=== PATIENT | female | born 1940 | race Caucasian/White ===

== ENCOUNTER 2022-03-12 21:38 | Emergency (ER) | payer MEDICARE, SELFPAY ==
[2022-03-12] VITALS (74 sets, daily range): BP systolic 58–133; BP diastolic 19–110; PULSE 59–119; RESP 6–32; TEMP 36.4–36.6; O2SAT 96
--- NOTE | 2022-03-12 21:30 | RT.EKG_ITS ---
APPROVED REPORT Exam: Resting ECG Reason for Exam: GI bleed hypotension Patient Location: E HR:111 bpm ECG Measurements Heart Rate 111 AXIS MI 113 P 75 QRSd 71 QRS 69 QT 332 T 255 QTc 452 Conclusion Sinus tachycardia...rate> 99 Low voltage, extremity leads...all extremity leads <0.5mV Repol abnrm suggests ischemia, anterolateral...ST dep, T neg, I aVL V2-V6
--- NOTE | 2022-03-12 21:47 | ED.GENADUL_ITS ---
Discharge Plan Disposition Patient Disposition: STILL A PATIENT Condition: Deteriorating Discharge Details Clinical Impression: Acute GI bleeding, Acute hypotension Primary Care Provider: Ovi Lujan ED Provider: Lillian Morel Home Meds and New Rx's Prescriptions: No Action lorazepam [Lorazepam Intensol] 2 mg/mL Concentrate 0.5 mg PO Q4H PRN Medical Decision Making 81-year-old female presents to the ER [facility] with a chief complaint of GI bleed, altered mental status and hypotensive. Per staff report they noticed altered mental status, not eating or drinking, and bright red bleeding per rectum. Patient is a DNR/DNI. She is pale, edematous she does have pressure ulcers on her bilateral heels, she is only received an Ativan today. She is not on any blood thinners. EMS was unable to get a blood pressure however we are getting a blood pressure 111/99. Guaiac positive with gross blood on rectal exam upon arrival. 2158: Informed by [facility] operations staff officer blood pressure is 56/46 heart rate is 97, 2 units of uncrossed matched blood ordered. I did discuss that patient is here with her daughter Kyara her phone number is [phone]. She states that she is declining since she had surgery on her fingers approximately 1 and half months ago. She has been [facility] for the last week. She does consent for CT abdomen pelvis and blood transfusion if needed. She will try to find a ride here. Work-up ordered including EKG, serial troponins, PT type and screen COVID test. Patient is a DNR/DNI. [address] María CARTY, NS up W/O. Blood pressure is variable there was a reading of 61 systolic. However right now the blood pressure is 82/50 2232: Dr. Daniel made a call to the daughter and niece again regarding patient's CODE STATUS and the direction for care. Daughter is to call back. Blood products was sent back to the lab for refrigeration until we hear the decision from the daughter. Daughter is having a hard time getting a ride here. Second liter of normal saline 40 mg Protonix IV ordered we will have a plan patient placed on 2 L to 2 to 4 L nasal cannula O2 we are unable to get O2 sat at this time. Spoke with Daughter again, she does want blood transfusion. 2308: Dr. Malave spoke with daughter who agrees to make patient comfort measures only. We do feel this is in the best interest of the patient at this point. Patient shows multi-organ dysfunction and failure we will give 1 unit of blood and keep patient comfortable. Patient's daughter is at least an hour out. Will speak with hospitalist regarding admission for comfort measures only and GI bleed Lab Data Lab results reviewed: Yes I reviewed the patient's lab results. Labs: Laboratory Tests Range/Units 03/12/22 03/12/22 03/12/22 22:20 22:20 22:20 WBC (4.4-10.8) 10^3/uL 12.04 H RBC (3.93-5.22) 10^6/uL 2.76 L Hgb (11.2-15.7) g/dL 7.4 L Hct (36.0-46.0) % 22.4 L MCV (80-95) fL 81 MCH (27.0-33.0) pg 26.8 L MCHC (32.0-36.0) % 33.0 RDW (11.7-14.6) % 27.4 H Plt Count (130-400) 10^3/uL 136 MPV (8.0-11.0) fL Immature Gran % 0.0 Neutrophils % 90.0 Band Neutrophils % 2 Lymphocytes % 3.0 Monocytes % 2.0 Eosinophils % 0.0 Basophils % 0.0 Metamyelocytes % 3 Nucleated RBC % (0.0-0.3) % 0.0 Absolute Neutrophils (1.2-6.7) 10^3/uL 11.08 H Absolute Lymphocytes (1.2-3.4) 10^3/uL 0.36 L Absolute Monocytes (0.1-0.8) 10^3/uL 0.24 Absolute Eosinophils (0.0-0.7) 10^3/uL 0.00 Absolute Basophils (0.0-0.2) 10^3/uL 0.00 RBC Morphology See Below Anisocytosis 2+ PT (9.3-11.0) sec 13.0 H INR (0.9-1.1) 1.3 H VBG pH (7.31-7.41) VBG pCO2 (41-51) mmHg VBG pO2 mmHg VBG HCO3 (23-28) mmol/L VBG Total CO2 (24-29) mmol/L VBG O2 Saturation % VBG Base Excess (-2-3) mmol/L Sodium (136-145) mmol/L 146 H Potassium (3.5-5.1) mmol/L 3.3 L Chloride (98-107) mmol/L 112 H Carbon Dioxide (21.0-32.0) mmol/L 22.6 Anion Gap (3-11) mmol/L 11.4 H BUN (7-18) mg/dL 58 H Creatinine (0.55-1.02) mg/dL 1.8 H Est GFR (CKD-EPI 2020) (mL/min/1.73m2) 27.96 Glucose (74-106) mg/dL 85 Calcium (8.5-10.1) mg/dL 7.2 L Magnesium (1.8-2.4) mg/dL 1.5 L Total Bilirubin (0.2-1.0) mg/dL 0.5 AST (15-37) U/L 32 ALT (14-59) U/L 33 Alkaline Phosphatase (46-116) U/L 410 H Troponin I (<or=60) ng/L 303 H* Total Protein (6.4-8.2) g/dL 4.0 L Albumin (3.4-5.0) g/dL 1.2 L Patient ABO/Rh Crossmatch Range/Units 03/12/22 03/12/22 22:20 22:48 WBC (4.4-10.8) 10^3/uL RBC (3.93-5.22) 10^6/uL Hgb (11.2-15.7) g/dL Hct (36.0-46.0) % MCV (80-95) fL MCH (27.0-33.0) pg MCHC (32.0-36.0) % RDW (11.7-14.6) % Plt Count (130-400) 10^3/uL MPV (8.0-11.0) fL Immature Gran % Neutrophils % Band Neutrophils % Lymphocytes % Monocytes % Eosinophils % Basophils % Metamyelocytes % Nucleated RBC % (0.0-0.3) % Absolute Neutrophils (1.2-6.7) 10^3/uL Absolute Lymphocytes (1.2-3.4) 10^3/uL Absolute Monocytes (0.1-0.8) 10^3/uL Absolute Eosinophils (0.0-0.7) 10^3/uL Absolute Basophils (0.0-0.2) 10^3/uL RBC Morphology Anisocytosis PT (9.3-11.0) sec INR (0.9-1.1) VBG pH (7.31-7.41) 7.37 VBG pCO2 (41-51) mmHg 37 L VBG pO2 mmHg 28 VBG HCO3 (23-28) mmol/L 21 L VBG Total CO2 (24-29) mmol/L 21 L VBG O2 Saturation % 51 VBG Base Excess (-2-3) mmol/L -4 L Sodium (136-145) mmol/L Potassium (3.5-5.1) mmol/L Chloride (98-107) mmol/L Carbon Dioxide (21.0-32.0) mmol/L Anion Gap (3-11) mmol/L BUN (7-18) mg/dL Creatinine (0.55-1.02) mg/dL Est GFR (CKD-EPI 2020) (mL/min/1.73m2) Glucose (74-106) mg/dL Calcium (8.5-10.1) mg/dL Magnesium (1.8-2.4) mg/dL Total Bilirubin (0.2-1.0) mg/dL AST (15-37) U/L ALT (14-59) U/L Alkaline Phosphatase (46-116) U/L Troponin I (<or=60) ng/L Total Protein (6.4-8.2) g/dL Albumin (3.4-5.0) g/dL Patient ABO/Rh O Positive Crossmatch See Detail HPI General Mode of arrival: EMS . Date/Time Provider Initiated Documentation: 03/12/22 21:41 . Limitations to Documentation: altered mental status . Information obtained by: RN/MD ([facility]) and EMS . HPI Narrative: 81-year-old female presents to the ER via EMS from [facility] with a chief complaint of GI bleed, altered mental status and hypotensive. Per staff report they noticed altered mental status, not eating or drinking, and bright red bl eeding per rectum. Patient is a DNR/DNI. She is pale, edematous she does have pressure ulcers on her bilateral heels, she is only received an Ativan today. She is not on any blood thinners. EMS was unable to get a blood pressure however we are getting a blood pressure 111/99. Guaiac positive with gross blood on rectal exam upon arrival. Related Data Home Medications Medication Instructions Recorded Confirmed lorazepam 2 mg/mL oral concentrate 0.5 mg PO Q4H PRN 03/12/22 03/12/22 (Lorazepam Intensol) Allergies Allergy/AdvReac Type Severity Reaction Status Date / Time No Known Allergies Allergy Unverified 03/12/22 21:50 General Stated Complaint: Abd Prob ROSETTE: 2 PFSH All Active Problems (Updated 03/12/22 @ 23:47 by Lillian Morel NP) Acute GI bleeding (Acute) Acute hypotension (Acute) Social History Smoking/Tobacco Use Status: Unknown Smoking risk assessment performed?: Yes Alcohol Intake: never Drug use: Never Substance use type: does not use Do you feel safe at home: Yes Do you feel safe in your relationship?: Yes Exam Const General: in distress and ill appearing acutely Nutritional Appearance: thin Orientation: confused Limitations: altered mental status Cardio Rate: regular rate Heart Sounds: S1 normal and S2 normal GI Inspection: normal to inspection Palpation: soft Rectal Exam - female: heme positive stool Rectal exam heme positive - female: gross blood Other: Grayson in place cloudy urine noted in catheter. Back/Spine/Pelvis Sacrum: erythema bilaterally Skin General skin exam: ecchymosis (feet, multiple amputated fingers, pressure wounds noted to bilateral heels,), pallor and turgor decreased Neuro General: patient confused and unable to assess gait Course Vital Signs Vital signs: Vital Signs Temperature 36.6 C 03/12/22 21:39 Pulse 113 H 03/12/22 21:39 Respiratory Rate 28 H 03/12/22 21:39 Blood Pressure 111/99 H 03/12/22 21:39 Temperature 36.6 C 03/12/22 21:39 Temperature Source Temporal Artery Scan 03/12/22 21:39 Pulse 113 H 03/12/22 21:39 Respiratory Rate 28 H 03/12/22 21:39 Blood Pressure 111/99 H 03/12/22 21:39 Blood Pressure Position Supine 03/12/22 21:39 Oxygen Delivery Method Room Air 03/12/22 21:39 Oxygen Flow Rate 0 03/12/22 21:39 Pain Level 8 03/12/22 21:39 Comment 03/12/22 21:39 Critical Care Time Critical Care Time Critical Care Time: Yes Total Critical Care Time: 60 Attestation: I spent greater than 35 minutes addressing this patient's acute life threatening illness. This time was spent engaged in actions directly related to the patient's care. Failure to initiate these interventions would have likely resulted in clinically significant or life threatening deterioration in the patients condition. Sign Out Sign Out Data: Sign Out Comment: Hypotensive, GI bleed, multi-organ failure. DNR/DNI. Awaiting family arrival and Comfort measures only. Given 2L NS, Protonix 40 mg IV, 1 unit PRBC. Last updated by Lillian Morel NP at 03/12/22 23:44
[2022-03-12 22:27] LABS: Abs Immature Grans 0.86 10^3/uL (0.0-0.06); HCT 22.4 % (36.0-46.0); HGB 7.4 g/dL (11.2-15.7); MCH 26.8 pg (27.0-33.0); MCV 81 fL (80-95); Platelet Count 136 10^3/uL (130-400); RBC 2.76 10^6/uL (3.93-5.22); RDW 27.4 % (11.7-14.6); RDW-SD 75.3 fL; WBC 12.04 10^3/uL (4.4-10.8)
[2022-03-12] MEDS: Normal Saline 1,000 ML 1000 ML IV ×2 (22:29→22:59)
[2022-03-12 22:41] LABS: INR 1.3 (0.9-1.1)
[2022-03-12] MEDS: Pantoprazole 40 MG VIAL IVP (22:43)
[2022-03-12 22:44] LABS: Absolute Lymphocyte Count 0.36 10^3/uL (1.2-3.4); Absolute Monocyte Count 0.24 10^3/uL (0.1-0.8); Absolute Neutrophil Count 11.08 10^3/uL (1.2-6.7); Bands % 2
[2022-03-12 22:45] LABS: Anisocytosis 2+; Diff Comment Manual Differential; Metamyelocytes % 3
[2022-03-12 22:50] LABS: ALT 33 U/L (14-59); AST 32 U/L (15-37); Albumin 1.2 g/dL (3.4-5.0); Alkaline Phosphatase 410 U/L (46-116); Anion Gap 11.4 mmol/L (3-11); BUN 58 mg/dL (7-18); Bilirubin, Total 0.5 mg/dL (0.2-1.0); CO2 22.6 mmol/L (21.0-32.0); CREATININE 1.8 mg/dL (0.55-1.02); Calcium 7.2 mg/dL (8.5-10.1); Chloride 112 mmol/L (98-107); Estimated GFR 27.96 (mL/min/1.73m2); Glucose 85 mg/dL (74-106); Magnesium 1.5 mg/dL (1.8-2.4); Potassium 3.3 mmol/L (3.5-5.1); Sodium 146 mmol/L (136-145)
[2022-03-12 22:53] LABS: BE (Venous) -4 mmol/L (-2-3); HCO3 (Venous) 21 mmol/L (23-28); O2 Sat (Venous) 51 %; TCO2 (Venous) 21 mmol/L (24-29); pCO2 (Venous) 37 mmHg (41-51); pH (Venous) 7.37 (7.31-7.41); pO2 (Venous) 28 mmHg
[2022-03-12 22:53] LABS: Troponin I 303 ng/L (<or=60)
[2022-03-12 23:08] LABS: COVID-19 PCR Negative (Negative); Influenza A PCR Negative (Negative); Influenza B PCR Negative (Negative); RSV PCR Negative (Negative)
[2022-03-12 23:10] LABS: Source Nasopharynx
--- NOTE | 2022-03-12 23:49 | NUR.NOTE ---
[facility] med list faxed to [facility]. Called [phone] and left message with all required patient information.Nursing Note:
[2022-03-13] VITALS (20 sets, daily range): BP systolic 56–97; BP diastolic 35–63; PULSE 76–175; RESP 12–22; O2SAT 99
--- NOTE | 2022-03-13 00:38 | TELEP.MEDR_ITS ---
Date of service: 03/13/22 Time of Service: 00:38 Telepharmlocated within [facility] Home Med Rec Allergies Allergies: No Known Allergies Allergy (Unverified 03/12/22 21:50) Interview Person Interviewed: * [facility] medication list Quality Quality of Interview/Accuracy of Medication List: Good Sources Sources used to compile medication lsit: Other (residential/rehab medciation list) Changes made to Home Medication List: ADDITIONS: * loperamide 2mg PO q6h PRN * Milk of Magnesia 30ml PO Q24h PRN constipation * Protein Liquid 30mg PO BID * Insta-glucose 77.4% 1 dose PO BRN BG <70 * Calcium carbonate 1000mg Q2h PRN dyspepsia * COlace 200mg PO Q12h PRN constipation * Bisacodyl 10mg Sup rectally Q24h PRN constipation * FLeet enema 1 dose Rectally Q24h PRN constipation * GLucagon kit 1mg IM PRn BG <70 DELETIONS: * none CHANGES: * none Additional Notes Additional Notes: * Medication list did not have any administration time for any medication Recommended Changes Recommended Changes(reason for recommendation): * none Attestation: * The home medication list is now updated to the best of my knowledge and is ready to be reconciled by the provider. Please contact the [facility] Pharmacist at for any questions.
--- NOTE | 2022-03-13 00:38 | TELEP.MEDREC ---
Date of service: 03/13/22 Time of Service: 00:38 [facility] Home Med Rec Allergies Allergies: No Known Allergies Allergy (Unverified 03/12/22 21:50) Interview Person Interviewed: [facility] medication list Quality Quality of Interview/Accuracy of Medication List: Good Sources Sources used to compile medication lsit: Other (retirement/rehab medciation list) Changes made to Home Medication List: ADDITIONS: loperamide 2mg PO q6h PRN Milk of Magnesia 30ml PO Q24h PRN constipation Protein Liquid 30mg PO BID Insta-glucose 77.4% 1 dose PO BRN BG <70 Calcium carbonate 1000mg Q2h PRN dyspepsia COlace 200mg PO Q12h PRN constipation Bisacodyl 10mg Sup rectally Q24h PRN constipation FLeet enema 1 dose Rectally Q24h PRN constipation GLucagon kit 1mg IM PRn BG <70 DELETIONS: none CHANGES: none Additional Notes Additional Notes: Medication list did not have any administration time for any medication Recommended Changes Recommended Changes(reason for recommendation): none Attestation: The home medication list is now updated to the best of my knowledge and is ready to be reconciled by the provider. Please contact the [facility] Medication Reconciliation Pharmacist at for any questions.
--- NOTE | 2022-03-13 02:06 | W.EDPROG ---
Date of service: 03/13/22 Time of Service: 02:06 Medical Decision Making i received sign out from first provider. Patient presented critically ill, hypotensive in the setting of a gi bleed, labs abnormal for inr of 1.3 despite not being on blood thinners. Troponin elevated as well, in multiorgan failure. Pt was receiving one unit of prbc's. I discussed patient's critical status with the family including her only child Zenia. The patient is already dnr/dni and would want limited interventions. Discussed with her the chance of meaningful recovery with how ill she is in this setting is quite low and would normally need central lines given she has poor vascular access and could need pressors decision was made to make her comfort measures only as she felt that she would not want to go through with more treatment and her goal would be to be comfortable. The daughter states Eliana's wish was to at home and despite not being able to care for herself well would like to bring her home if possible with hospice support. We currently don't have staffing to admit here and the daughter doesn't want the patient to go back to rehab if possible. Will keep in the ED until care management can assess in the morning Sign Out Sign Out Data: Sign Out Comment: Hypotensive, GI bleed, multi-organ failure. DNR/DNI. Awaiting family arrival and Comfort measures only. Given 2L NS, Protonix 40 mg IV, 1 unit PRBC. Last updated by Lillian Morel NP at 03/12/22 23:44 Discharge Plan Disposition Patient Disposition: STILL A PATIENT Condition: Deteriorating Discharge Details Clinical Impression: Acute GI bleeding, Acute hypotension, Elevated troponin Primary Care Provider: Oiv Lujan ED Provider: Eulogio Daniel [place] Meds and New Rx's Prescriptions: No Action lorazepam [Lorazepam Intensol] 2 mg/mL Concentrate 0.5 mg PO Q4H PRN Glucagon Emergency Kit 1 mg Kit 1 mg IM PRN PRN (Reason: Hypoglycemia) Rx Instructions: for BG <70, not arousable conscious or able to swallow. Repeat BG in 15 minutes dextrose [Insta-Glucose] 40 % Gel 31 g PO PRN PRN (Reason: Hypoglycemia) Rx Instructions: BG <70, patient arousable conscious and able to swallow bisacodyl 10 mg Suppository 10 mg TN Q24H PRN (Reason: Constipation) Rx Instructions: if no result from MOM by next shift Fleet Enema 19-7 gram/118 mL Enema 118 ml TN DAILY PRN (Reason: Constipation) Rx Instructions: if no result from Dulcolax within 2 hours. If no results from Fleet enema, call MD for further orders docusate sodium 100 mg Capsule 200 mg PO Q12H PRN PRN (Reason: Constipation) calcium carbonate 500 mg calcium (1,250 mg) Tablet,Chewable 1,000 mg PO Q2H PRN (Reason: Dyspepsia) loperamide 2 mg Capsule 2 mg PO Q6H PRN magnesium hydroxide [Milk of Magnesia] 400 mg/5 mL Suspension 30 ml PO HS PRN (Reason: Constipation) Rx Instructions: if no BM in 3 days. protein supplement Liquid 30 ml PO BID
--- NOTE | 2022-03-13 03:58 | NUR.NOTE ---
2155: Pt BIBEMS from [facility] for GI Bleed and AMS. Per report pt has had very poor PO intake for several days. Pt DNR/DNI arrives alert but minimally responsive w/o regarding examiner. Only verbalizations 'Help!' and 'Ow!'. EMS unable to obtain BP enroute. Upon arrival pt profoundly hypotensive ( see vitals flowsheet for details), pale w/ cap refill >3sec. Toes and heels noted to be purple and mottled, w/ non blanchable redness on bilateral heels and pressure ulcers. Coccyx is also diffusely non-blanchable and red, w/ multiple areas of skin breakdown and bed sores. Afebrile. Pt incontinent of moderate amount of bloody, dark red stool. Unable to obtain IV access. DIRECTOR NETWORK DEVELOPMENT Maria Teresa at bedside to assess. Plan to obtain IV access w/ US, draw labs and treat hypotension. 2310: Pt hypotension persists, but pt now speaking clearly and mentating more appropriately, but w/ poor recall/situational awareness. SBP <75mmHg despite 2L NS boluses and 1 unit PRBCs transfusing. Denies pain at this time. Per MD Daniel s/p phone discussion w/ family, will await family arrival at bedside and transition pt to [employer]. Repositioning pt q2h and floating heels to help reduce worsening of skin breakdown and for pt comfort. 2337: Pt daughter and grandchildren at bedside. Pt removed from monitor and family updated at length by MD Daniel on pt overall condition and prognosis. Pt to remain in ER overnight till bed becomes available. Daughter and granddaughter plan to remain at her side at this time. Refreshment and comfort items offered. 0249: Relocated pt to larger room in ER to accommodate family more comfortably. Pt occasionally having small bloody BMs still. LUZ MARINA cream mixed w/ topical lidocaine applied to buttocks to help w/ healing and discomfort. Pt appreciative of care.
--- NOTE | 2022-03-13 09:05 | NUR.NOTE ---
Nursing Note: patients bottom was cleaned and bed pad was changed, bo cream applied to reddened area; bloody stool is still appearing. patients toes and fingers are very purple. urine in ely bag is yellow and cloudy. patient states she is comfortable and refuses pain meds, patients family is at bedside.
[2022-03-13] MEDS: MORPHine 10 MG/ML VIAL IVP ×2 (13:45→15:10)
--- NOTE | 2022-03-14 11:53 | ED.PROG_ITS ---
Date of service: 03/13/22 Time of Service: 07:30 Medical Decision Making Eliana Moore was signed out to me by Dr. Daniel at time of shift change, Pt status critically ill, Pt DNR/DNI and made Comfort Measures Only by family, now awaiting care management/hospice coordination. Per care management, [facility] will not be available to Pt until tomorrow (Pt lives in [place]). Pt's family requesting that Pt be discharged home today regardless of services available at home. I had a lengthy discussion with the Pt's daughter and granddaughter re: difficulties of transporting Pt and caring for Pt at home while she is not under hospice care, in addition to Pt possibly experiencing discomfort at home without skilled healthcare workers available, discussed option of admitting Pt to the hospital overnight until hospice available tomorrow am. Family state that they do not want Pt to in the hospital and are comfortable caring for her at home, but are amenable to discussing further with [facility] hospice. [facility] hospice at bedside, had lengthy discussion with Pt and family. Pt and family continue to elect to go home from the ED today without hospice, with hospice to begin tomorrow. Nursing requesting Pt have rectal tube placed for Pt's comfort during transport in family's car, as Pt with significant amount of continued melena. I discussed with Pt and her family that they may RTED at any time if they change their mind. Pt discharged to home. Sign Out Sign Out Data: Sign Out Comment: Hypotensive, GI bleed, multi-organ failure. DNR/DNI. Awaiting family arrival and Comfort measures only. Given 2L NS, Protonix 40 mg IV, 1 unit PRBC. Last updated by Lillian Morel NP at 03/12/22 23:44 Sign Out Comment: patient transferred from rehab with hypotension and lower gi bleed. Troponin elevated, inr 1.3 despite not on anticoagulants. Dnr/dni, family decided they wanted her to be comfort care. Did not want her to go back to rehab, wanted to try getting her home with hospice, pending care management evaluation. No beds to admit to here until that can happen so remained in the ED Last updated by Eulogio Daniel MD at 03/13/22 04:03 Discharge Plan Disposition Patient Disposition: HOME Condition: Critical Discharge Details Clinical Impression: Acute GI bleeding, Acute hypotension, Elevated troponin Primary Care Provider: Ovi Lujan ED Provider: Livier Espino Home Meds and New Rx's Prescriptions: No Action acetaminophen 650 mg suppository 650 mg RI Q6H PRN (Reason: fever, mild pain) Qty: 6 0RF Rx Instructions: Hospice Patient hyoscyamine sulfate 0.125 mg tablet,disintegrating 0.125 - 0.25 mg PO Q4H PRN (Reason: secretions) Qty: 24 0RF Rx Instructions: Hospice Patient lorazepam 1 mg tablet 1 mg PO Q4H PRN (Reason: anxiety, PARK or nausea) Qty: 6 5RF Rx Instructions: Hospice Patient haloperidol lactate 2 mg/mL concentrate 1 mg PO Q6H PRN (Reason: agitation) Qty: 15 0RF Rx Instructions: Hospice Patient morphine concentrate 100 mg/5 mL (20 mg/mL) solution 5 - 20 mg PO Q1-4H MDD 5 mL PRN (Reason: moderate to severe pain or shortness of breath) Qty: 30 0RF Rx Instructions: Hospice Patient prochlorperazine maleate 10 mg tablet 10 mg PO Q6H PRN (Reason: nausea and vomiting) Qty: 6 0RF Rx Instructions: Hospice Patient bisacodyl [Dulcolax (bisacodyl)] 10 mg suppository 10 mg RI daily PRN (Reason: constipation) Qty: 2 0RF Rx Instructions: Hospice Patient Insert 1 supp RI Daily PRN constipation (no BM in 3 days) lorazepam [Lorazepam Intensol] 2 mg/mL Concentrate 0.5 mg PO Q4H PRN Glucagon Emergency Kit 1 mg Kit 1 mg IM PRN PRN (Reason: Hypoglycemia) Rx Instructions: for BG <70, not arousable conscious or able to swallow. Repeat BG in 15 minutes dextrose [Insta-Glucose] 40 % Gel 31 g PO PRN PRN (Reason: Hypoglycemia) Rx Instructions: BG <70, patient arousable conscious and able to swallow bisacodyl 10 mg Suppository 10 mg RI Q24H PRN (Reason: Constipation) Rx Instructions: if no result from MOM by next shift Fleet Enema 19-7 gram/118 mL Enema 118 ml RI DAILY PRN (Reason: Constipation) Rx Instructions: if no result from Dulcolax within 2 hours. If no results from Fleet enema, call MD for further orders docusate sodium 100 mg Capsule 200 mg PO Q12H PRN PRN (Reason: Constipation) calcium carbonate 500 mg calcium (1,250 mg) Tablet,Chewable 1,000 mg PO Q2H PRN (Reason: Dyspepsia) loperamide 2 mg Capsule 2 mg PO Q6H PRN magnesium hydroxide [Milk of Magnesia] 400 mg/5 mL Suspension 30 ml PO HS PRN (Reason: Constipation) Rx Instructions: if no BM in 3 days. protein supplement Liquid 30 ml PO BID Discharge Instructions Additional Instructions: You have elected to leave the emergency department with your mother so that she may be cared for by home hospice for end-of-life care and comfort measures. You may return with your mother to emergency department anytime if you change your mind. Referrals: Ovi Lujan [Primary Care Provider] - Discharge Data Discharge Date/Time-TO BE ENTERED AT DEPARTURE: 03/13/22 15:16
--- NOTE | 2022-03-15 15:17 | PCNE_ITS ---
Date of service: 03/13/22 Time of Service: 11:45 History of Present Illness Narrative: Ms. Monroy is an 81 y/o F currently in [facility] ED 2/2 acute GI bleed; PC consult placed to review POC for discharge home on hospice; PMH largely unknown via family, CHF, CKD, dementia listed pt and granddaughter Sirena present at start of visit, best friend Linette joins retirement, niece Lelia joins via telephone, daughter Zenia joins at the end of visit pt came to ED from H/R after episode of bleeding from rectum, presented as critically ill, hypotensive in setting of GI bleed, labs abnormal w/INR 1.3, troponin elevated, in multiorgan failure; family decision to transition to [employer] and discharge home in [place] on hospice; [facility], they will intak e tomorrow, currently working on obtaining hospital bed and O2; family reports they will transport pt home via private vehicle, state will be able to transfer pt into home safely COLST form completed w/pt at [facility] 02/24/22, DNR/I, pt preference to be kept comfortable and be home for EOL; HCA not known initially, however best friend Linette joined visit, lists Lelia Shaista (niece) at [facility], called Lelia, who was able to report from AD that grandson Ephraim Menjivar as primary HCA and granddaughter Sirena (present) as 2nd agent, Ephraim not available d/t currently in home setting up for pt return home; was hospitalized at [facility] 08/03 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; granddaughter reports pt refuses pain mediation, does not like meds, some dysphagia w/liquids, tolerates thickened fluids, preference for no pills; occasional anxiety, does not want meds spoke to [facility]: request COLST, CTI and comfort meds sent in for pt, pharmacy: [facility], PCP [facility] Assessment and Plan Assessment and plan (1) Encounter for hospice care discussion: Status: Acute Assessment and plan: offered pt inpatient admission for hospice sxs management prior to discharge home on hospice, family denies [facility] aware of pt, working on obtaining DME currently, will fax CTI and note as appropriate DNR/I, [employer] reviewed HCA w/family (2) Acute GI bleeding: Status: Acute Assessment and plan: preference for no work up, end organ failure (3) Acute hypotension: Status: Acute Review of Systems Narrative: as per HPI PFSH All Active Problems (Updated 03/15/22 @ 15:46 by Deisi Baldwin NP) Encounter for hospice care discussion (Acute) Acute GI bleeding (Acute) Acute hypotension (Acute) Elevated troponin (Acute) Social History Smoking/Tobacco Use Status: Unknown Smoking risk assessment performed?: Yes Alcohol Intake: never Drug use: Never Substance use type: does not use Do you feel safe at home: Yes Do you feel safe in your relationship?: Yes Exam Narrative Exam Narrative: pt lying comfortably in bed throughout visit Const General: comfortable, frail appearing and ill appearing Nutritional Appearance: cachectic Resp Effort & Inspection: normal respiratory effort, able to speak in complete sentences, no audible wheezes and no cough Auscultation: clear to auscultation bilaterally and diminished lung sounds Cardio Rate: regular rate Rhythm: regular rhythm GI Auscultation: normal bowel sounds Skin Other: thin, dry, pressure sores noted on bilat heels, pallor Extrem Other: multiple amputated fingers Psych Speech and Movement: speech clear Insight: limited Judgment: limited Other: scared, meghana when discussing EOL confused w/altered mental status Results Last Vital Signs Temp 97.5 F L 03/12/22 23:31 Pulse 76 03/13/22 00:17 Resp 19 03/13/22 00:19 BP 97/63 L 03/13/22 00:17 Pulse Ox 99 03/13/22 00:17 Labs Result diagrams: 03/12/22 22:20 03/12/22 22:20
== END 2022-03-13 15:16 | disposition home or self-care (01) ==
PROVIDERS: Registered Nurse Emergency; Emergency Provider Student in an Organized Health Care Education/Training Program; PCP Family Medicine
DX: K92.2 Gastrointestinal hemorrhage, unspecified (principal); I95.9 Hypotension, unspecified; L89.619 Pressure ulcer of right heel, unspecified stage; L89.629 Pressure ulcer of left heel, unspecified stage; Z20.822 Contact with and (suspected) exposure to COVID-19; Z66 Do not resuscitate
CPT/HCPCS: 80053; 82805; 86850; 86900; 86901; 86920; 87637; 93005; 96361; 96374; 96375; 96376; 99291; 83735; 84484; 85025; 85610; 93010; J2270; P9016